=== PATIENT | female | born 1945 | race Caucasian/White ===

== ENCOUNTER → 2016-12-30 | Outpatient (REF) | payer MEDICARE ==
[~2016-12-30] MED LIST: ADV500INH INH; ALBU17IN INH; AMLO10TA PO; AMLO5TAB2 PO; ASPI81TAEC PO; ATOR1TAB18 PO; CINN500C9 PO; CLIN1CAP5 PO; COLA100C PO; COUM1TAB17 PO; COUM2TAB10 PO; DOXY100C PO; ECOT325T3 PO; FIBE625T27 PO; FISH100049 PO; FURO40TA2 PO; INSUH10VL SC; IPRAINH INH; K-TA10TA PO; KEFL500C7 PO; LANTINJ4 SC; LASI20TA PO; LATA5OPD OU; LEVA12INH INH; LEVA250T PO; LOSA100T36 PO; MAGN64TASA PO; MAPA325T2 PO; METAMUCIL PO; METO-207 PO; NOVOINJ3 SC; PERCOCET PO; PRED10TA PO; PRED20TAB PO; PRIL20CA9 PO; SENN-22 PO; SILV50CR TOP; SITA50TAB PO; TYLE325T5 PO
[2016-12-30 16:37] LABS: CREATININE FOR GFR 2.1 MG/DL (0.55-1.02); GLOMERULAR FILTRATION RATE 24.6 (>39)
== END ==
LOC: M LABDRAW1 15:20
PROVIDERS: ATTEND Physician Assistant
DX: M47.896 Other spondylosis, lumbar region (principal)

== ENCOUNTER → 2017-05-11 | Outpatient (CLI) | payer MEDICARE ==
[~2017-05-11] MED LIST changes: -COLA100C PO; +COLA100C3 PO
--- NOTE | 2017-05-11 12:35 | REPMRS ---
Patient History The patient states she had a clinical breast exam in 03/2017. Patient has history of uterine cancer at age 28 and is nulliparous. Family history of colorectal cancer in sister at age 70. Benign lumpectomy of the left breast, 1973. Digital Woman Screen Mammo: May 11, 2017 - Exam #: [id number] Bilateral CC and MLO view(s) were taken. Technologist: Irais Little, Technologist Prior study comparison: April 15, 2015, digital woman screen mammo performed at [facility]. March 26, 2014, digital woman screen mammo performed at [facility]. FINDINGS: There are scattered fibroglandular densities. There has been no change in the appearance of the mammogram from the prior studies. There is a mild amount of residual fibroglandular tissue which is fairly symmetric. There is no interval development of dominant mass, architectural distortion, or clustered microcalcification suggestive of malignancy. ASSESSMENT: BI-RADS/ACR category 1 mammogram. Negative. Recommendation Routine screening mammogram in 1 year (for women over age 40). This mammogram was interpreted with the aid of an FDA-approved computer-aided dectection system. Electronically Signed By: Pawan Lama MD 05/11/17 [id number]
== END ==
LOC: M WHC 10:32
PROVIDERS: ATTEND Obstetrics & Gynecology
DX: Z12.31 Encounter for screening mammogram for malignant neoplasm of breast (principal); Z85.42 Personal history of malignant neoplasm of other parts of uterus; Z80.0 Family history of malignant neoplasm of digestive organs

== ENCOUNTER → 2017-05-16 | Outpatient (CLI) | payer MEDICARE ==
--- NOTE | 2017-05-17 07:40 | REP ---
Left wrist series: Four views. History: Pain. Ulnar sided wrist pain. Comparison left hand radiographs are reviewed from November 24, 2015. Findings: Four views of the left wrist demonstrate soft tissue swelling about the ulnar styloid and ulnar aspect of the wrist. Some vascular calcification is noted. There is progressive erosive change of the ulnar styloid. Some dystrophic calcification is seen adjacent to the ulnar styloid. There is also some erosive arthropathy affecting the first carpometacarpal articulation at the distal edge of the imaging field of view. Impression: Soft-tissue swelling and progressive erosion change at the ulnar styloid. Inflammatory arthropathy possible gout. Vascular calcification. There is some erosive arthropathy at the first MCP joint as well. Signed by Lucius Orozco MD 05/17/2017 08:27 A
== END ==
LOC: M WUC 16:28
PROVIDERS: ATTEND Physician Assistant
DX: M25.532 Pain in left wrist (principal); R60.1 Generalized edema; M15.4 Erosive (osteo)arthritis

== ENCOUNTER → 2017-05-20 | Outpatient (REF) | payer MEDICARE ==
[2017-05-20 13:02] LABS: URIC ACID 8.8 MG/DL (2.6-6.0)
[2017-05-20 13:14] LABS: BASO % 0.8 % (0.0-1.0); EOS # 0.2 K/mm3 (0.0-0.50); EOS % 3.9 % (0.0-3.0); LARGE UNSTAINED CELL # 0.2 K/mm3 (0.0-0.4); LARGE UNSTAINED CELL % 2.8 % (0.0-4.0); LYMPH # 1.5 K/mm3 (1.5-4.5); LYMPH % 26.5 % (24.0-44.0); MEAN CORPUSCULAR HEMOGLOBIN 23.8 pg (27.0-33.0); MEAN CORPUSCULAR VOLUME 85.1 fl (80.0-96.0); MONO # 0.4 K/mm3 (0.0-0.8); MONO % 7.7 % (0.0-5.0); NEUTROPHILS # 3.2 K/mm3 (1.8-7.7); NEUTROPHILS % 58.4 % (36.0-66.0); PLATELET COUNT, AUTOMATED 223 k/mm3 (150-450); RED CELL DISTRIBUTION WIDTH 18.4 % (11.5-14.5); WHITE BLOOD COUNT 5.5 K/mm3 (4.0-10.0)
[2017-05-20 13:15] LABS: ADD MORPHOLOGY? YES
[2017-05-20 13:38] LABS: ERYTHROCYTE SEDIMENTATION RATE 28 mm/hr (0-30)
[2017-05-20 13:42] LABS: ANISOCYTOSIS 2+
[2017-05-22 00:07] LABS: Lyme Disease IgG/IgM Antibodie <0.91 ISR (0.00-0.90); Lyme Disease IgM Ab Quantitati <0.80 index (0.00-0.79)
== END ==
LOC: M LABDRAW1 12:02
PROVIDERS: ATTEND Orthopaedic Surgery
DX: M25.532 Pain in left wrist (principal)

== ENCOUNTER → 2017-06-09 | Outpatient (REF) | payer MEDICARE ==
[~2017-06-09] MED LIST changes: -ATOR1TAB18 PO; +ATOR80TA59 PO; +CLIN150C14 PO; -CLIN1CAP5 PO; -COLA100C3 PO; +COLA100C5 PO; -COUM2TAB10 PO; +COUM2TAB22 PO; -ECOT325T3 PO; +ECOT325T5 PO; +KEFL500C17 PO; -KEFL500C7 PO; +LEVA1TAB PO; -LEVA250T PO; -METO-207 PO; +METO1TAB7 PO
[2017-06-09 17:18] LABS: PERCENT SATURATION 6.1 % (13.2-37.4); URIC ACID 8.7 MG/DL (2.6-6.0)
[2017-06-09 17:45] LABS: FOLATE 19.7 NG/ML (>5.4)
[2017-06-09 20:51] LABS: MEAN CORPUSCULAR HEMOGLOBIN 24.1 pg (27.0-33.0); MEAN CORPUSCULAR HGB CONC 28.1 g/dl (32.0-36.5); MEAN CORPUSCULAR VOLUME 85.6 fl (80.0-96.0); RED CELL DISTRIBUTION WIDTH 18.2 % (11.5-14.5); RETIC HEMOGLOBIN CONTENT CHr 25.3 PG (24-36); RETICULOCYTE ABSOLUTE ADVIA212 95 x10(9)/L (17-77); WHITE BLOOD COUNT 6.2 K/mm3 (4.0-10.0)
[2017-06-09 22:01] LABS: ANISOCYTOSIS 2+; EOSINOPHILS 5 % (0-5); HYPOCHROMASIA 2+; OVALOCYTES 1+; POIKILOCYTOSIS 1+; POLYCHROMASIA 1+
== END ==
LOC: M LAB REF 16:33
PROVIDERS: ATTEND Family Medicine
DX: N18.4 Chronic kidney disease, stage 4 (severe) (principal); D64.9 Anemia, unspecified; R79.89 Other specified abnormal findings of blood chemistry

== ENCOUNTER → 2018-03-30 | Outpatient (REF) | payer MEDICARE | LOC: M LAB REF 13:24 | DX: N39.0 Urinary tract infection, site not specified (principal) | CPT/HCPCS: 87186 ==

== ENCOUNTER → 2018-05-17 | Outpatient (CLI) | payer MEDICARE | LOC: M WHC 10:01 | DX: Z12.31 Encounter for screening mammogram for malignant neoplasm of breast (principal) | CPT/HCPCS: 77067 ==

== ENCOUNTER → 2018-08-25 | Outpatient (CLI) | payer MEDICARE ==
[2018-08-25 13:55] LABS: BASO % 0.4 % (0.0-1.0); EOS # 0.2 10^3/uL (0.0-0.50); EOS % 3.1 % (0.0-3.0); HEMATOCRIT 42.8 % (36.0-47.0); HEMOGLOBIN 13.8 g/dl (12.0-15.5); IMMATURE GRANULOCYTE % 0.4 % (0-3.0); LYMPH # 1.9 10^3/uL (1.5-4.5); LYMPH % 24.4 % (24.0-44.0); MEAN CORPUSCULAR HEMOGLOBIN 31.6 pg (27.0-33.0); MEAN CORPUSCULAR HGB CONC 32.2 g/dl (32.0-36.5); MEAN CORPUSCULAR VOLUME 97.9 fl (80.0-96.0); MONO # 0.7 10^3/uL (0.0-0.8); MONO % 8.9 % (0.0-5.0); NEUTROPHILS # 4.8 10^3/uL (1.8-7.7); NEUTROPHILS % 62.8 % (36.0-66.0); PLATELET COUNT, AUTOMATED 151 10^3/uL (150-450); RED BLOOD COUNT 4.37 10^6/uL (4.00-5.40); RED CELL DISTRIBUTION WIDTH 14.6 % (11.5-14.5); WHITE BLOOD COUNT 7.7 10^3/uL (4.0-10.0)
[2018-08-25 14:11] LABS: URIC ACID 6.4 MG/DL (2.6-6.0)
== END ==
LOC: M WUC 10:48
DX: M79.644 Pain in right finger(s) (principal)
CPT/HCPCS: 84550

== ENCOUNTER → 2018-08-30 | Outpatient (CLI) | payer MEDICARE | LOC: M WUC 15:11 | DX: M79.644 Pain in right finger(s) (principal) | CPT/HCPCS: 73130 ==

== ENCOUNTER → 2018-11-15 | Outpatient (CLI) | payer MEDICARE ==
[~2018-11-15] MED LIST changes: -AMLO5TAB2 PO; +AMLO5TAB4 PO; -LEVA1TAB PO; +LEVA250T13 PO; +LOSA-4 PO; -LOSA100T36 PO
--- NOTE | 2018-11-17 10:22 | DEXA ---
AP SPINE L1 - L4 1.707 4.1 5.9 LT FEMUR TOTAL 1.215 1.6 3.3 LT NECK 1.127 0.6 2.5 RT FEMUR TOTAL 1.164 1.2 2.9 RT NECK 1.171 1.0 2.8 TOTAL BODY TOTAL OTHER COMMENTS: Normal bone densitometry of the spine and hips. The density of the spine has increased 13.6% since the initial exam on 09/08/2005. The spine density has increased 3.4% since the most recent exam on 07/28/2011. The density of the left hip has decreased 3.4% since the initial exam on 09/08/2005. The density of the left hip has decreased 0.4% since the most recent exam on 07/28/2011. The density of the right hip has decreased 8.1% since the initial exam on 09/08/2005. The density of the right hip has decreased 6.8% since the most recent exam on 07/28/2011. FOLLOW-UP: Recommendation for the next bone density exam: 5 years. FRANK
== END ==
LOC: M WHC 14:20
PROVIDERS: ATTEND Family Medicine
DX: Z13.820 Encounter for screening for osteoporosis (principal); Z78.0 Asymptomatic menopausal state

== ENCOUNTER 2019-03-08 05:56 | Day surgery (SDC) | payer MEDICARE ==
[~2019-03-08] VITALS: Ht 167.6 cm; Wt 93.0 kg
[~2019-03-08 05:56] MED LIST changes: +ALLO100T PO; -AMLO5TAB4 PO; +AMLO5TAB6 PO; +BIMA01SOL OU; +CENTCHW3 PO; +D 50CAP PO; +FERR325T3 PO; -LASI20TA PO; +LASI20TA3 PO; +LATA0.0013 OU; -LATA5OPD OU; -LEVA12INH INH; +LEVA3NEB INH; -LOSA-4 PO; +LOSA100T50 PO; +LOSA50TA88 PO; +PRED-351 PO; -PRED10TA PO; -SILV50CR TOP; +THER1CRE16 TOP
[2019-03-08 06:38] LABS: HEMATOCRIT 46.3 % (36.0-47.0); HEMOGLOBIN 14.7 g/dl (12.0-15.5); MEAN CORPUSCULAR HEMOGLOBIN 31.5 pg (27.0-33.0); MEAN CORPUSCULAR HGB CONC 31.7 g/dl (32.0-36.5); MEAN CORPUSCULAR VOLUME 99.1 fl (80.0-96.0); PLATELET COUNT, AUTOMATED 142 10^3/uL (150-450); RED BLOOD COUNT 4.67 10^6/uL (4.00-5.40); WHITE BLOOD COUNT 6.2 10^3/uL (4.0-10.0)
[2019-03-08 06:58] LABS: CALCIUM LEVEL 9.3 MG/DL (8.8-10.2); CREATININE FOR GFR 1.89 MG/DL (0.55-1.30); GLOMERULAR FILTRATION RATE 27.7 (>39); POTASSIUM SERUM 4.1 MEQ/L (3.5-5.1)
[2019-03-08] MEDS ORDERED: CLINDAMYCIN 600 MG in APPROPRIATE DILUENT 1 EA IV SCH (07:00)
[2019-03-08] MEDS ORDERED: CLINDAMYCIN 600 MG in APPROPRIATE DILUENT 1 EA IV ONE (07:00)
[2019-03-08] MEDS ORDERED: PROPOFOL 500 MG/50 ML VIAL As Ordered ONE (07:13)
[2019-03-08] MEDS ORDERED: MIDAZOLAM INJ 2 MG/2 ML VIAL (J2250) As Ordered ONE (07:13)
[2019-03-08] MEDS ORDERED: fentaNYL 100 MCG/2 ML INJECTION (J3010) As Ordered ONE (07:13)
[2019-03-08] MEDS ORDERED: ONDANSETRON 4MG/2ML VIAL (J2405) As Ordered ONE (07:14)
[2019-03-08] MEDS ORDERED: dexameTHASONE 4 MG/ML 1ML VIAL (J1100) As Ordered ONE (07:14)
[2019-03-08] MEDS ORDERED: LIDOCAINE 2% INJ 100 MG/5 ML SDV (FOR ANES.) As Ordered ONE (07:14)
[2019-03-08] MEDS ORDERED: LIDOCAINE 1% SDV INJ 30 ML VIAL As Ordered ONE (07:19)
[2019-03-08] MEDS ORDERED: BUPIVACAINE/EPIN 0.25% 30 ML VIAL As Ordered ONE (07:25)
--- NOTE | 2019-03-08 07:45 | ECGEPIP ---
Stationary ECG Study [facility] Test Date: 2019-03-08 Pat Name: NICHOLAS OVIEDO Department: Room: - Gender: F Roll Builder: [facility] : 1945 Requested By: JARRETT Lawler Order Number: [id number] Reading MD: Sarkis Mcpherson Measurements Intervals [place] Rate: 61 P: 78 VT: 196 QRS: 101 QRSD: 145 T: -3 QT: 472 QTc: 476 Interpretive Statements SINUS RHYTHM MARKED RIGHT AXIS DEVIATION RIGHT BUNDLE BRANCH BLOCK Slower rate and resolution of primary lateral ST/T-wave abnormalities from 05/10/16. Electronically Signed On 03-08-2019 7:44:35 EDT by Sarkis Mcpherson
[2019-03-08 09:15] VITALS: BP 157/69
--- NOTE | 2019-03-08 09:30 | RO ---
DATE OF PROCEDURE: 03/08/2019 PREOPERATIVE DIAGNOSIS: Right carpal tunnel syndrome. POSTOPERATIVE DIAGNOSIS: Right carpal tunnel syndrome. PROCEDURE: Right open carpal tunnel release. PROCEDURE PERFORMED: Right open carpal tunnel release. SURGEON: Dr. Audi Nicole VENDER: Dari Pham OPERATIVE PREAMBLE: This 73-year-old female who had signs and symptoms consistent with chronic carpal tunnel syndrome. She wished good ahead with surgery after trying nonoperative means. We talked about pros, cons, risks, benefits including but not limited to infection, neurovascular injury, stiffness, pain, bleeding making it no better or even worse as well as anesthesia risks nd . She wished to go ahead we signed the consent. I saw her preoperative holding and confirmed the site and then she wished to go ahead. OPERATIVE REPORT: Patient brought to operating theater. She was placed on the operating room table with the hand table to the right side. 18 inch tourniquet was applied to the right upper extremity. Preoperative time-out was performed. Checked the patient and the site was marked appropriately. IV sedation was given by the telehealth coordinator. We thoroughly prepped and draped the surgical site in the usual sterile fashion. We allowed this prep solution to thoroughly dry for 3 minutes. Tourniquet was inflated to 250 mmHg for the next 18 minutes before being taken down at the end of the case. Four mL of 0.25% Marcaine with 1/100,000 epinephrine was infiltrated using 25-gauge needle and around the incision site. I made a longitudinal approximately 1 inch incision centered overlying the transverse carpal tunnel ligament in line with the fourth digit. Carried this dissection down through skin and 70 tissue which had meticulous hemostasis. Next I incised the transverse carpal ligament along its length. I made sure it was fully released proximally and distally with a with 15 blade small tenotomy scissors and [place] elevator. Once the transverse carpal ligament was released I inspected the flexor tendons which appeared relatively normal. There is perhaps small area compression in the mid aspect of the median nerve. Next, I thoroughly irrigated the wound using normal saline followed by closure of the skin with interrupted horizontal mattress 5-0 Ethilon sutures. We cleaned the wound using wet and dry dressing followed by the patient nonstick Xeroform dressing for 4 x8 gauze and Celestine type bandage. All sterile. Tourniquet was taken down. The patient was transferred off the operating room table and taken postanesthetic care unit in stable condition. All sponge, needle, instrument counts were correct. Estimated blood loss of 1 mL. There is no complications associated with the procedure. PLAN: The patient will be discharged home. They should continue to elevate the arm and hand as well as followup in the clinic in 2 weeks time to check the incision and discontinue the sutures.
== END 2019-03-08 09:29 | disposition home or self-care (01) ==
LOC: M SDC 05:56
PROVIDERS: ATTEND Orthopaedic Surgery Sports Medicine
DX: G56.01 Carpal tunnel syndrome, right upper limb (principal); I25.10 Atherosclerotic heart disease of native coronary artery without angina pectoris; I10 Essential (primary) hypertension; E78.5 Hyperlipidemia, unspecified; E11.40 Type 2 diabetes mellitus with diabetic neuropathy, unspecified; M10.9 Gout, unspecified; Z86.711 Personal history of pulmonary embolism; Z79.4 Long term (current) use of insulin; J44.9 Chronic obstructive pulmonary disease, unspecified; Z79.82 Long term (current) use of aspirin; Z87.891 Personal history of nicotine dependence; Z79.899 Other long term (current) drug therapy; Z85.42 Personal history of malignant neoplasm of other parts of uterus
CPT/HCPCS: 36415; 64721; 80048; 85027; 93005; J1100; J2250; J2405; J3010

== ENCOUNTER 2019-04-02 00:07 | Emergency (ER) | payer MEDICARE, OTHER ==
[~2019-04-02] VITALS: Ht 167.6 cm; Wt 93.2 kg
[2019-04-02] MEDS ORDERED: MORPHINE 10 MG/ML 1ML VIAL (J2270) IM ONE (01:30)
[2019-04-02] MEDS ORDERED: traMADol 50 MG TAB (BULK 4 TAB ED) PO ONE (01:45)
[2019-04-02 01:51] VITALS: BP 127/58
--- NOTE | 2019-04-02 12:03 | REP ---
CHEST, TWO VIEWS: Two views of the chest are performed and compared to a prior study of 05/22/2016. Chronic interstitial fibrotic changes are seen in the lung bases, appearing stable. No acute infiltrate or pneumothorax is seen. I see no pleural effusion. There is chronic elevation of the right hemidiaphragm. Prominent right pulmonary artery is noted. The heart is normal in size. There is calcification of the thoracic aorta. The mediastinal silhouette is unchanged. There are degenerative changes of the spine. IMPRESSION: Stable chronic findings as above. No evidence of acute findings. Electronically Signed by Pawan Lama MD 04/02/2019 12:30 P
== END 2019-04-02 02:17 | disposition home or self-care (01) ==
LOC: M ED 00:07 → EDBD 00:07 → M ED 02:17
DX: S20.211A Contusion of right front wall of thorax, initial encounter (principal); V49.49XA Driver injured in collision with other motor vehicles in traffic accident, initial encounter; Y92.410 Unspecified street and highway as the place of occurrence of the external cause; E11.9 Type 2 diabetes mellitus without complications; I10 Essential (primary) hypertension; J44.9 Chronic obstructive pulmonary disease, unspecified; I25.10 Atherosclerotic heart disease of native coronary artery without angina pectoris; N28.9 Disorder of kidney and ureter, unspecified; Z79.899 Other long term (current) drug therapy; Z79.82 Long term (current) use of aspirin; Z79.4 Long term (current) use of insulin; Z88.0 Allergy status to penicillin; Z88.1 Allergy status to other antibiotic agents
CPT/HCPCS: 71046; 96372; 99284; J2270

== ENCOUNTER 2019-04-03 12:46 | Emergency (ER) | payer OTHER ==
[~2019-04-03] VITALS: Ht 167.6 cm; Wt 93.2 kg
[2019-04-03 12:46] VITALS: BP 93/55
--- NOTE | 2019-04-03 14:35 | REP ---
REASON: Status post trauma. COMPARISON: None. There is a fracture involving the radial styloid with an intra-articular component. This is nondisplaced. Electronically Signed by Jase Walker DO 04/03/2019 04:38 P
== END 2019-04-03 14:11 | disposition home or self-care (01) ==
LOC: M ED 12:46
DX: S52.514A Nondisplaced fracture of right radial styloid process, initial encounter for closed fracture (principal); V49.60XA Unspecified car occupant injured in collision with unspecified motor vehicles in traffic accident, initial encounter; Y92.410 Unspecified street and highway as the place of occurrence of the external cause; I13.0 Hypertensive heart and chronic kidney disease with heart failure and stage 1 through stage 4 chronic kidney disease, or unspecified chronic kidney disease; I50.9 Heart failure, unspecified; E78.00 Pure hypercholesterolemia, unspecified; J44.9 Chronic obstructive pulmonary disease, unspecified; I95.9 Hypotension, unspecified; N18.9 Chronic kidney disease, unspecified; E11.22 Type 2 diabetes mellitus with diabetic chronic kidney disease; M54.9 Dorsalgia, unspecified; Z87.442 Personal history of urinary calculi; Z79.899 Other long term (current) drug therapy; Z79.82 Long term (current) use of aspirin; Z79.4 Long term (current) use of insulin; Z88.0 Allergy status to penicillin; Z88.1 Allergy status to other antibiotic agents

== ENCOUNTER → 2019-07-17 | Outpatient (CLI) | payer MEDICARE ==
--- NOTE | 2019-07-17 12:55 | REPMRS ---
Patient History The patient states she had a clinical breast exam in 03/2019. Patient has history of bladder cancer at age 34, has history of endometrial cancer at age 28, and is nulliparous. Family history of colorectal cancer at age 70 in sister. Benign lumpectomy of the left breast, 1974. Digital Woman Screen Mammo: July 17, 2019 - Exam #: [id number] Bilateral CC and MLO view(s) were taken. Technologist: Lauren Allen Technologist Prior study comparison: May 17, 2018, bilateral digital woman screen mammo performed at [facility]. May 11, 2017, digital woman screen mammo performed at [facility]. April 15, 2015, digital woman screen mammo performed at [facility]. FINDINGS: There are scattered fibroglandular densities. There is a grouping of benign stable dermal calcifications inferiorly and medially in the right breast unchanged from multiple prior studies. There has been no change in the appearance of the mammogram from the prior studies. There is a mild amount of scattered fibroglandular density which is fairly symmetric. There is no interval development of dominant mass, architectural distortion, or grouped microcalcification suggestive of malignancy. 3-D tomosynthesis shows no additional findings. Assessment: BI-RADS/ACR category 2 mammogram. Benign Findings. Recommendation Routine screening mammogram of both breasts in 1 year (for women over age 40). This patient's Lifetime Breast Cancer Risk is estimated at 4.6 %. This mammogram was interpreted with the aid of an FDA-approved computer-aided dectection system. Electronically Signed By: Gregory Orozco MD 07/17/19 [id number]
== END ==
LOC: M WHC 12:03
PROVIDERS: ATTEND Obstetrics & Gynecology
DX: Z12.31 Encounter for screening mammogram for malignant neoplasm of breast (principal); Z85.42 Personal history of malignant neoplasm of other parts of uterus; Z85.51 Personal history of malignant neoplasm of bladder; Z80.0 Family history of malignant neoplasm of digestive organs

== ENCOUNTER → 2019-09-28 | Day surgery (SDC) | payer MEDICARE ==
[~2019-09-28] VITALS: Ht 167.6 cm; Wt 91.6 kg
[~2019-09-28] MED LIST changes: +LIDOCAINE 2% INJ 100 MG/5 ML SDV (FOR ANES.) As Ordered ONE; +NS 1,000 ML IV ONE; +PROPOFOL 200 MG/20 ML VIAL As Ordered ONE
--- NOTE | 2019-09-28 13:50 | ROOR ---
Patient Name: Italia Alejandra Procedure Date: 09/28/2019 1:13 PM Date of : 1945 Age: 74 Room: [facility] Gender: Female Note Status: Finalized Procedure: Colonoscopy Indications: Screening for colorectal malignant neoplasm Providers: Alan Lopes Jr, MD Referring MD: Rajesh Kinsey MD Requesting Provider: Medicines: Propofol per Anesthesia Complications: No immediate complications. Procedure: Pre-Anesthesia Assessment: - Prior to the procedure, a History and Physical was performed, and patient medications and allergies were reviewed. The patient is competent. The risks and benefits of the procedure and the sedation options and risks were discussed with the patient. All questions were answered and informed consent was obtained. Patient identification and proposed procedure were verified by the physician and the nurse in the pre-procedure area and in the procedure room. Mental Status Examination: alert and oriented. Airway Examination: normal oropharyngeal airway and neck mobility. Respiratory Examination: clear to auscultation. CV Examination: normal. ASA Grade Assessment: III - A patient with severe systemic disease. After reviewing the risks and benefits, the patient was deemed in satisfactory condition to undergo the procedure. The anesthesia plan was to use moderate sedation / analgesia (conscious sedation). Immediately prior to administration of medications, the patient was re-assessed for adequacy to receive sedatives. The heart rate, respiratory rate, oxygen saturations, blood pressure, adequacy of pulmonary ventilation, and response to care were monitored throughout the procedure. The physical status of the patient was re-assessed after the procedure. The Colonoscope was introduced through the anus and advanced to the cecum, identified by appendiceal orifice and ileocecal valve. The colonoscopy was performed without difficulty. The patient tolerated the procedure well. The quality of the bowel preparation was poor. Findings: The rectum, recto-sigmoid colon, descending colon, ascending colon, cecum, appendiceal orifice and ileocecal valve appeared normal. Multiple small and large-mouthed diverticula were found in the sigmoid colon. A small polyp was found in the transverse colon. The polyp was removed with a cold snare. Resection was complete, but the polyp tissue was not retrieved. Non-bleeding external and internal hemorrhoids were found during endoscopy. The hemorrhoids were Grade II (internal hemorrhoids that prolapse but reduce spontaneously) and Grade III (internal hemorrhoids that prolapse but require manual reduction). Impression: - Preparation of the colon was poor. - The rectum, recto-sigmoid colon, descending colon, ascending colon, cecum, appendiceal orifice and ileocecal valve are normal. - Diverticulosis in the sigmoid colon. - One small polyp in the transverse colon, removed with a cold snare. Complete resection. Polyp tissue not retrieved. - Non-bleeding external and internal hemorrhoids. Recommendation: - Discharge patient to home (ambulatory). - Repeat colonoscopy in 5 years for surveillance. Alan Lopes MD Alan Lopes Jr, MD 09/28/2019 1:50:27 PM Electronically signed by Alan Lopes Jr, MD Number of Addenda: 0 Note Initiated On: 09/28/2019 1:13 PM Estimated Blood Loss: Estimated blood loss: none.
[2019-09-28 14:20] VITALS: BP 166/72
== END | disposition home or self-care (01) ==
LOC: M OPP 13:20
PROVIDERS: ATTEND Surgery
DX: Z12.11 Encounter for screening for malignant neoplasm of colon (principal); Z80.0 Family history of malignant neoplasm of digestive organs; K64.2 Third degree hemorrhoids; K64.1 Second degree hemorrhoids; D12.3 Benign neoplasm of transverse colon; K57.30 Diverticulosis of large intestine without perforation or abscess without bleeding; J44.9 Chronic obstructive pulmonary disease, unspecified; E10.9 Type 1 diabetes mellitus without complications; Z79.2 Long term (current) use of antibiotics; Z79.4 Long term (current) use of insulin; Z79.899 Other long term (current) drug therapy; Z88.1 Allergy status to other antibiotic agents; Z86.718 Personal history of other venous thrombosis and embolism; Z86.711 Personal history of pulmonary embolism; Z85.41 Personal history of malignant neoplasm of cervix uteri; Z85.51 Personal history of malignant neoplasm of bladder; Z87.891 Personal history of nicotine dependence

== ENCOUNTER → 2020-06-26 | Outpatient (REF) | payer MEDICARE ==
[~2020-06-26] MED LIST changes: +AMLO1TAB24 PO; -AMLO5TAB6 PO; -LIDOCAINE 2% INJ 100 MG/5 ML SDV (FOR ANES.) As Ordered ONE; +LOSA25TA14; -MAPA325T2 PO; +MAPA325T8 PO; +NORC1TAB7 PO; -NS 1,000 ML IV ONE; +OMEP-221; -PROPOFOL 200 MG/20 ML VIAL As Ordered ONE
[2020-07-22 08:22] LABS: APPEARANCE, URINE CLEAR (CLEAR); BACTERIA, URINE AUTO NEGATIVE (NEGATIVE); BILIRUBIN, URINE AUTO NEGATIVE (NEGATIVE); BLOOD, URINE BLOOD NEGATIVE (NEGATIVE); COLOR, URINE STRAW (YELLOW); GLUCOSE, URINE (UA) AUTO NEGATIVE (NEGATIVE); KETONE, URINE AUTO NEGATIVE (NEGATIVE); LEUKOCYTE ESTERASE, URINE AUTO NEGATIVE (NEGATIVE); NITRITE, URINE AUTO NEGATIVE (NEGATIVE); PROTEIN, URINE AUTO NEGATIVE (NEGATIVE); RBC, URINE AUTO 0 /HPF (0-3); SPECIFIC GRAVITY URINE AUTO 1.008 (1.002-1.035); SQUAMOUS EPITHELIAL CELL UR AU 0 /HPF (0-6); UROBILINOGEN, URINE AUTO 0.2 mg/dL (0.0-2.0); WBC, URINE AUTO 0 /HPF (0-3)
== END ==
LOC: M LAB REF 08:52
PROVIDERS: ATTEND Family Medicine
DX: Z01.818 Encounter for other preprocedural examination (principal)

== ENCOUNTER → 2020-07-25 | Outpatient (CLI) | payer MEDICARE ==
--- NOTE | 2020-07-25 16:27 | REPMRS ---
Patient History The patient states she has not had a clinical breast exam in over a year. Family history of colorectal cancer at age 70 in sister. Benign lumpectomy of the left breast, 1974. Digital Woman Screen Mammo: July 25, 2020 - Exam #: [id number] Bilateral CC and MLO view(s) were taken. Technologist: Kika Perez, Technologist Prior study comparison: July 17, 2019, bilateral digital woman screen mammo performed at [facility]. May 17, 2018, bilateral digital woman screen mammo performed at [facility]. May 11, 2017, digital woman screen mammo performed at [facility]. FINDINGS: There are scattered fibroglandular densities. The Volpara volumetric breast density category is:B. There has been no change in the appearance of the mammogram from the prior studies. There is a mild amount of scattered fibroglandular density which is fairly symmetric. There is no interval development of dominant mass, architectural distortion, or grouped microcalcification suggestive of malignancy. 3-D tomosynthesis shows no additional findings. Assessment: BI-RADS/ACR category 1 mammogram. Negative Mammogram. Recommendation Routine screening mammogram of both breasts in 1 year (for women over age 40). This patient's Lifetime Breast Cancer Risk is estimated at 4.2 %. This mammogram was interpreted with the aid of an FDA-approved computer-aided dectection system. Electronically Signed By: Gregory Orozco MD 07/25/20 [id number]
== END ==
LOC: M WHC 10:53
PROVIDERS: ATTEND Family Medicine
DX: Z12.31 Encounter for screening mammogram for malignant neoplasm of breast (principal); C67.9 Malignant neoplasm of bladder, unspecified; Z86.018 Personal history of other benign neoplasm; Z80.0 Family history of malignant neoplasm of digestive organs

== ENCOUNTER 2020-08-06 00:10 | Emergency (ER) | payer MEDICARE ==
[~2020-08-06] VITALS: Ht 167.6 cm; Wt 93.5 kg
[~2020-08-06 00:10] MED LIST changes: -LOSA25TA14; -NORC1TAB7 PO; -OMEP-221
[2020-08-06] MEDS ORDERED: LOSA25TA14 (00:23)
[2020-08-06] MEDS ORDERED: OMEP-221 (00:23)
[2020-08-06] MEDS ORDERED: ACETAMINOPHEN 500 MG TAB PO ONE (00:45)
[2020-08-06 01:32] VITALS: BP 176/72
--- NOTE | 2020-08-06 01:37 | REPVR ---
PROCEDURE INFORMATION: Exam: XR Right Shoulder Exam date and time: 08/06/2020 1:21 AM Age: 74 years old Clinical indication: Pain; Shoulder; Right; Patient HX: Fall; Additional info: Injury TECHNIQUE: Imaging protocol: XR Right shoulder. Views: 2 or more views. COMPARISON: No relevant prior studies available. FINDINGS: Bones/joints: Acute humeral head and neck fracture. Soft tissues: Normal. IMPRESSION: Acute humeral head and neck fracture. Electronically signed by: Roland Wells On 08/06/2020 01:37:17 AM
--- NOTE | 2020-08-06 01:38 | REPVR ---
PROCEDURE INFORMATION: Exam: XR Right Elbow Exam date and time: 08/06/2020 1:21 AM Age: 74 years old Clinical indication: Pain; Upper arm and elbow; Right; Patient HX: Fall; Additional info: Injury TECHNIQUE: Imaging protocol: XR Right elbow. Views: 3 or more views. COMPARISON: No relevant prior studies available. FINDINGS: Bones/joints: Degenerative changes. Soft tissues: Normal. IMPRESSION: No acute fractures or dislocations. Electronically signed by: Roland Wells On 08/06/2020 01:38:17 AM
[2020-08-06] MEDS ORDERED: NORC1TAB7 PO (01:47)
[2020-08-06] MEDS ORDERED: NORCO 5/325MG TABLET (BULK FOR ED) PO ONE (02:00)
== END 2020-08-06 02:12 | disposition home or self-care (01) ==
LOC: M ED 00:10
DX: S42.211A Unspecified displaced fracture of surgical neck of right humerus, initial encounter for closed fracture (principal); W17.89XA Other fall from one level to another, initial encounter; Y92.018 Other place in single-family (private) house as the place of occurrence of the external cause; Z79.899 Other long term (current) drug therapy; Z79.82 Long term (current) use of aspirin; Z79.4 Long term (current) use of insulin; Z88.0 Allergy status to penicillin; Z88.1 Allergy status to other antibiotic agents; F17.210 Nicotine dependence, cigarettes, uncomplicated

== ENCOUNTER → 2021-04-02 | Outpatient (REF) | payer MEDICARE ==
[~2021-04-02] MED LIST changes: +ASPI-569 PO; -ASPI81TAEC PO; -CLIN150C14 PO; +CLIN150C15 PO; +LOSA25TA14; +NORC1TAB7 PO; +OMEP-221
== END ==
LOC: M LAB REF 16:25
PROVIDERS: ATTEND Family Medicine
DX: M10.9 Gout, unspecified (principal)

== ENCOUNTER → 2021-04-03 | Outpatient (REF) | payer MEDICARE | LOC: M LAB REF 16:29 | PROVIDERS: ATTEND Family Medicine | DX: R19.7 Diarrhea, unspecified (principal) ==

== ENCOUNTER → 2021-08-18 | Outpatient (CLI) | payer MEDICARE ==
[~2021-08-18] MED LIST changes: -CLIN150C15 PO; +CLIN150C17 PO; -DOXY100C PO; +DOXY100C3 PO
--- NOTE | 2021-08-18 15:50 | REP ---
INDICATION: STENOSIS, PAD COMPARISON: None. TECHNIQUE: Real-time ultrasound evaluation and duplex Doppler interrogation of the extracranial carotid vasculature is performed. FINDINGS: There is moderate calcific plaquing and narrowing in both carotid bulbs extending into the internal and external carotid arteries. Luminal narrowing is less than 50%. There is no evidence of hemodynamically significant stenosis of either internal carotid artery. Normal flow velocities are seen. The vertebral arteries demonstrate normal direction of flow. RIGHT LEFT Peak systolic velocity ICA 122.4 cm/s 115.7 cm/s End diastolic velocity ICA 18.0 cm/s 12.2 cm/s Peak systolic velocity CCA 127.9 cm/s 88.5cm/s Peak systolic velocity ECA 96.9 cm/s 76.6 cm/s ICA/CCA ratio 0.92 1.31 IMPRESSION: Bilateral luminal narrowing of the internal carotid arteries less than 50%. No evidence of hemodynamically significant stenosis. <Electronically signed by Pawan Lama > 08/18/21 [id number]
--- NOTE | 2021-08-18 16:16 | REP ---
INDICATION: STENOSIS, PAD COMPARISON: None. TECHNIQUE: Real time lama scale and Duplex Doppler evaluation of the bilateral lower extremity arterial vasculature using linear high frequency transducer. FINDINGS: Lama scale and duplex doppler images demonstrate an occluded femoral to femoral bypass graft. Multiple collateral vessels are seen in the common iliac regions. Flow is seen in the bilateral external iliac arteries. There is very slow flow throughout the right lower extremity arterial structures with diffuse monophasic waveforms. No focal stenosis is visualized. There is poor visualization of the common femoral arteries at the bypass graft anastomosis. Moderate diffuse calcific plaque is seen. Diffuse biphasic waveforms are seen throughout the left lower extremity. No focal stenosis is seen. Moderate diffuse calcific plaque is seen. Peak systolic velocities (cm/sec) External iliac artery: Right 65; left 118 Common femoral artery: Right 98; Left 99 Profunda femoris: Right 30; Left 89 SFA (proximal): Right 36; Left 59 SFA (mid): Right 61; Left 72 SFA (distal): Right 28; Left 57 Popliteal artery: Right 23; Left 26 ANGELO (prox.): Right 22; Left 56 Tibioperoneal trunk: Right 22; Left 25 HOME MANAGEMENT SUPERVISOR (prox.): Right 20; Left 49 HOME MANAGEMENT SUPERVISOR (distal): Right 11; Left 41 ANGELO (distal): Right 26; Left 61 IMPRESSION: Moderate diffuse calcific plaque bilateral lower extremity arterial structures. 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 Collateral vessels are seen in the common iliac regions. There is flow in the bilateral external iliac arteries extending distally bilaterally with no duplex Doppler sonographic evidence of focal stenosis bilaterally. <Electronically signed by Pawan Lama > 08/18/21 [id number]
== END ==
LOC: M RAD 12:58
PROVIDERS: ATTEND Physician Assistant Medical
DX: I65.23 Occlusion and stenosis of bilateral carotid arteries (principal); I73.9 Peripheral vascular disease, unspecified

== ENCOUNTER → 2021-09-05 | Outpatient (CLI) | payer MEDICARE ==
--- NOTE | 2021-09-05 14:09 | REPMRS ---
Patient History The patient states she has not had a clinical breast exam in over a year. Family history of colorectal cancer at age 70 in sister. Benign lumpectomy of the left breast, 1974. No breast complaints today Patient signed the MRS sheet 1st covid vaccine 01/05/21-left arm-Moderna 2nd covid vaccine 02/02/21-left arm Patient states she has had a 15lb weight lose since her last mammo [facility] on PACS Patient Identification Verified Digital Woman Screen Mammo: September 05, 2021 - Exam #: [id number] Bilateral CC and MLO view(s) were taken. Technologist: Kika Perez, Technologist Prior study comparison: July 25, 2020, bilateral digital woman screen mammo performed at [facility]. July 17, 2019, bilateral digital woman screen mammo performed at [facility]. May 17, 2018, bilateral digital woman screen mammo performed at [facility]. FINDINGS: There are scattered fibroglandular densities. The Volpara volumetric breast density category is:B. There is a well-circumscribed 5 mm kaci density in the medial aspect of the left breast. This merits further evaluation. There is a similar sized very superficial kaci density in the lateral aspect superiorly on the right which also merits further evaluation there are dermal calcifications inferiorly and medially on the left. These are benign.. There has been no other change in the appearance of the mammogram from the prior studies. There is a mild amount of scattered fibroglandular density which is fairly symmetric. There is no other interval development of dominant mass, architectural distortion, or grouped microcalcification suggestive of malignancy. 3-D tomosynthesis shows no additional findings. Assessment: BI-RADS/ACR category 0 mammogram, Incomplete: Need additional imaging evaluation and/or prior mammograms for comparison. Recommendation Ultrasound and special view mammogram of both breasts. This patient's [facility] Lifetime Breast Cancer Risk is estimated at 3.5 %. This mammogram was interpreted with the aid of an FDA-approved computer-aided dectection system. Electronically Signed By: Gregory Orozco MD 09/05/21 [id number]
== END ==
LOC: M WHC 11:21
PROVIDERS: ATTEND Family Medicine
DX: R92.2 Inconclusive mammogram (principal); Z80.8 Family history of malignant neoplasm of other organs or systems; Z98.890 Other specified postprocedural states; R63.4 Abnormal weight loss

== ENCOUNTER → 2021-09-08 | Outpatient (CLI) | payer MEDICARE ==
[2021-09-08 14:23] LABS: CALCIUM LEVEL 8.9 MG/DL (8.8-10.2); CREATININE FOR GFR 1.82 MG/DL (0.55-1.30); GLOMERULAR FILTRATION RATE 28.7 (>39); POTASSIUM SERUM 4.4 MEQ/L (3.5-5.1)
== END ==
LOC: M WUC 11:11
PROVIDERS: ATTEND Physician Assistant Medical
DX: Z01.812 Encounter for preprocedural laboratory examination (principal); Z95.828 Presence of other vascular implants and grafts; I73.9 Peripheral vascular disease, unspecified

== ENCOUNTER → 2021-10-01 | Outpatient (CLI) | payer MEDICARE ==
--- NOTE | 2021-10-01 12:52 | REP ---
INDICATION: B/L ADD VIEWS. COMPARISON: 09/05/2021 as well as multiple other prior exams. TECHNIQUE: Spot-compression tomographic sequences are obtained bilaterally, as well as focused bilateral breast ultrasound. FINDINGS: A smoothly marginated 5 mm nodule is confirmed in the upper outer quadrant of the right breast. This is fairly superficial, located near the skin, approximately 7-8 cm from the nipple. A smoothly marginated 5 mm nodule is confirmed in the medial left breast, approximately 7 cm from the nipple. Focused right breast ultrasound is performed. There is a cystic structure with focal echoes along the inner wall posteriorly. There is some degree of distal acoustic shadowing. This measures 3 x 3 x 4 mm. According to the technologist it is at 12 o'clock, 4 cm from the nipple. Average KP a value 16.3 with elastography. I am uncertain if this corresponds to the nodule on the mammogram. Focused left breast ultrasound performed medially. At 10 o'clock a 4 mm hypoechoic nodule is seen not representing a simple cyst. This is approximately 7 cm from the nipple. Average KP a value 30.8. IMPRESSION: BIRADS/ACR category 4, suspicious. 5 mm nodule confirmed in the upper outer quadrant of the right breast and in the inner left breast. By ultrasound the right breast nodule appears to represent a complex cystic structure, and the left breast nodule may be a complex cyst or solid nodule. Recommend bilateral ultrasound-guided biopsy with postprocedure mammogram, to ensure that the nodules identified sonographically correspond to the nodules identified mammographically. This mammogram was interpreted with the aid of an FDA-approved computer-aided detection system. The patient letter being requested is M4. RECOMMENDATION: Recommend bilateral ultrasound-guided biopsy. <Electronically signed by Pawan Lama > 10/01/21 1245
== END ==
LOC: M WHC 10:54
PROVIDERS: ATTEND Family Medicine
DX: N63.11 Unspecified lump in the right breast, upper outer quadrant (principal); N63.21 Unspecified lump in the left breast, upper outer quadrant; Z12.31 Encounter for screening mammogram for malignant neoplasm of breast
CPT/HCPCS: 76642; 77066; G0279

== ENCOUNTER → 2021-10-06 | Outpatient (REF) | payer MEDICARE | LOC: M LAB REF 17:03 | PROVIDERS: ATTEND Internal Medicine Nephrology | DX: E83.42 Hypomagnesemia (principal) ==

== ENCOUNTER → 2021-10-28 | Outpatient (CLI) | payer MEDICARE ==
[~2021-10-28] MED LIST changes: +LOSA100T45 PO; -LOSA100T50 PO; +LOSA25TA13; -LOSA25TA14; +LOSA50TA28 PO; -LOSA50TA88 PO; -OMEP-221; +OMEP40CA5
[2021-10-28 11:30] VITALS: BP 124/74
== END ==
LOC: M WHCPRO 09:30
PROVIDERS: ATTEND Family Medicine
DX: D24.1 Benign neoplasm of right breast (principal); D24.2 Benign neoplasm of left breast; N63.12 Unspecified lump in the right breast, upper inner quadrant; N63.22 Unspecified lump in the left breast, upper inner quadrant
CPT/HCPCS: 19083; 19084; 77066; 88305; G0279

== ENCOUNTER → 2022-01-02 | Outpatient (CLI) | payer MEDICARE | LOC: M SLEEP 20:00 | PROVIDERS: ATTEND Internal Medicine Pulmonary Disease | DX: G47.33 Obstructive sleep apnea (adult) (pediatric) (principal) ==

== ENCOUNTER → 2022-01-05 | Outpatient (CLI) | payer MEDICARE | LOC: M RAD 15:01 | PROVIDERS: ATTEND Nurse Practitioner Family | DX: R06.00 Dyspnea, unspecified (principal) ==

== ENCOUNTER → 2022-01-05 | Outpatient (CLI) | payer MEDICARE | LOC: M RAD 15:02 | PROVIDERS: ATTEND Internal Medicine Pulmonary Disease | DX: R91.8 Other nonspecific abnormal finding of lung field (principal); R06.00 Dyspnea, unspecified ==

== ENCOUNTER → 2022-01-06 | Outpatient (CLI) | payer MEDICARE | LOC: M RAD 09:19 | PROVIDERS: ATTEND Internal Medicine Cardiovascular Disease | DX: I27.20 Pulmonary hypertension, unspecified (principal) | CPT/HCPCS: 78582; A9540; A9567 ==

== ENCOUNTER → 2022-01-30 | Outpatient (CLI) | payer MEDICARE ==
[2022-01-30 14:32] LABS: C REACTIVE PROTEIN QUANTITATIV 0.31 MG/DL (0.00-0.30); RHEUMATOID FACTOR QUANT 10.8 IU/ML (<15.0)
[2022-01-30 15:12] LABS: CA19-9 TUMOR MARKER,CARBOHYDRA 7.6 U/ML (<35.0)
== END ==
LOC: M LAB 12:44
PROVIDERS: ATTEND Internal Medicine Pulmonary Disease
DX: J84.9 Interstitial pulmonary disease, unspecified (principal)

== ENCOUNTER → 2022-03-26 | Outpatient (CLI) | payer MEDICARE | LOC: M SLEEP 20:00 | PROVIDERS: ATTEND Internal Medicine Pulmonary Disease | DX: G47.33 Obstructive sleep apnea (adult) (pediatric) (principal) ==

== ENCOUNTER → 2022-05-12 | Outpatient (CLI) | payer MEDICARE | LOC: M RAD 10:36 | PROVIDERS: ATTEND Internal Medicine Pulmonary Disease | DX: J84.9 Interstitial pulmonary disease, unspecified (principal) ==

== ENCOUNTER → 2022-06-19 | Outpatient (REF) | payer MEDICARE | LOC: M LAB REF 15:43 | PROVIDERS: ATTEND Student in an Organized Health Care Education/Training Program | DX: M54.50 Low back pain, unspecified (principal) ==

== ENCOUNTER → 2022-06-25 | Outpatient (CLI) | payer MEDICARE | LOC: M WUC 11:47 | PROVIDERS: ATTEND Physician Assistant | DX: M51.35 Other intervertebral disc degeneration, thoracolumbar region (principal); N39.0 Urinary tract infection, site not specified ==

== ENCOUNTER → 2022-07-20 | Outpatient (CLI) | payer MEDICARE | LOC: M WHC 08:33 | PROVIDERS: ATTEND Orthopaedic Surgery | DX: M85.9 Disorder of bone density and structure, unspecified (principal); Z87.828 Personal history of other (healed) physical injury and trauma ==

== ENCOUNTER → 2022-07-20 | Outpatient (CLI) | payer MEDICARE | LOC: M RAD 11:10 | PROVIDERS: ATTEND Internal Medicine Pulmonary Disease | DX: M85.89 Other specified disorders of bone density and structure, multiple sites (principal); R91.8 Other nonspecific abnormal finding of lung field; J84.9 Interstitial pulmonary disease, unspecified; N18.9 Chronic kidney disease, unspecified; I50.9 Heart failure, unspecified; Z88.0 Allergy status to penicillin; Z79.4 Long term (current) use of insulin; Z79.899 Other long term (current) drug therapy ==

== ENCOUNTER 2022-08-25 20:29 | Inpatient (IN) | payer MEDICARE ==
[~2022-08-25] VITALS: Ht 162.6 cm; Wt 90.1 kg
[2022-08-25 20:53] LABS: HEMATOCRIT 39.4 % (36.0-47.0); HEMOGLOBIN 10.8 g/dl (12.0-15.5); MEAN CORPUSCULAR HEMOGLOBIN 31.1 pg (27.0-33.0); MEAN CORPUSCULAR HGB CONC 27.4 g/dl (32.0-36.5); MEAN CORPUSCULAR VOLUME 113.5 fl (80.0-96.0); PLATELET COUNT, AUTOMATED 249 10^3/uL (150-450); RED BLOOD COUNT 3.47 10^6/uL (4.00-5.40); WHITE BLOOD COUNT 17.8 10^3/uL (4.0-10.0)
[2022-08-25] MEDS ORDERED: NOREPINEPHRINE 4MG IN D5 250ML 4 MG in IV 1 EA IV STA ×2 (20:53)
[2022-08-25] MEDS ORDERED: NOREPINEPHRINE 4MG IN D5 250ML 4 MG in IV 1 EA IV SCH ×2 (21:00)
[2022-08-25 21:05] LABS: ABG BASE EXCESS -16.4 (-2.0-2.0); ABG HCO3 13.8 MEQ/L (22.0-26.0); ABG O2 SATURATION 97.7 % (95.0-99.0); ABG STANDARD HCO3 11.9 MEQ/L (22.0-26.0); ABG TOTAL CO2 15.3 MEQ/L (23.0-31.0)
[2022-08-25 21:06] LABS: ABG pH (ARTERIAL) 7.042 UNITS (7.350-7.450)
[2022-08-25 21:06] LABS: INR 1.04
[2022-08-25 21:07] LABS: PARTIAL THROMBOPLASTIN TIME 27.3 SECONDS (25.9-37.0)
[2022-08-25 21:07] LABS: ABG PARTIAL PRESSURE CO2 51.8 mmHg (35.0-45.0)
[2022-08-25 21:14] LABS: ATYPICAL LYMPH 2 % (0-5); LYMPHOCYTES 33 % (16-44); MONOCYTES 1 % (0-5); MYELOCYTES 1 % (0-0); NEUTROPHILS 62 % (28-66); PLATELET ESTIMATE NORMAL (NORMAL)
[2022-08-25 21:15] LABS: TEAR DROP CELLS 1+
[2022-08-25] MEDS ORDERED: NS 1,000 ML IV ONE ×2 (21:25→21:35)
[2022-08-25 21:27] LABS: CK-MB VALUE MASS 1.8 NG/ML (<3.6)
[2022-08-25 21:32] LABS: ACETONE/KETONE 1.36 MG/DL (<2.81); ALBUMIN 2.4 GM/DL (3.2-5.2); ALT/SGPT 128 U/L (12-78); AMYLASE 213 U/L (25-115); BILIRUBIN,DIRECT 0.3 MG/DL (0.0-0.2); BILIRUBIN,TOTAL 0.5 MG/DL (0.2-1.0); BLOOD UREA NITROGEN 63 MG/DL (7-18); CALCIUM LEVEL 9.1 MG/DL (8.8-10.2); CARBON DIOXIDE LEVEL 18 MEQ/L (21-32); CHLORIDE LEVEL 105 MEQ/L (98-107); CREATININE FOR GFR 2.49 MG/DL (0.55-1.30); ETHYL ALCOHOL (ETHANOL) < 0.003 % (0.000-0.010); GLUCOSE, FASTING 428 MG/DL (70-100); LIPASE 253 U/L (73-393); SODIUM LEVEL 142 MEQ/L (136-145); TOTAL PROTEIN 6.1 GM/DL (6.4-8.2)
[2022-08-25] MEDS ORDERED: SODIUM BICARBONATE 8.4% INJ 50 ML SYRINGE IV STA (21:34)
[2022-08-25] MEDS ORDERED: propofoL 1,000 MG in IV 1 EA IV STA (21:44)
[2022-08-25] MEDS ORDERED: PROPOFOL 1,000 MG/100 ML VIAL As Ordered ONE (21:46)
[2022-08-25 21:55] LABS: APPEARANCE, URINE MANUAL HAZY (CLEAR)
[2022-08-25] MEDS ORDERED: FUROSEMIDE 100MG/10ML VIAL (J1940) IV ONE (21:55)
[2022-08-25 21:56] LABS: COLOR, URINE MANUAL YELLOW (YELLOW); RSV AMPLIFICATION NEGATIVE (NEGATIVE); SPECIFIC GRAVITY,URINE MANUAL 1.015 (1.002-1.035)
[2022-08-25 21:57] LABS: BILIRUBIN, URINE MANUAL NEGATIVE (NEGATIVE); BLOOD URINE MANUAL POSITIVE (NEGATIVE); GLUCOSE, URINE (UA) MANUAL 2+(250 MG/DL) mg/dL (NEGATIVE); KETONE, URINE MANUAL NEGATIVE (NEGATIVE); LEUKOCYTE ESTERASE, URINE MAN TRACE (NEGATIVE); NITRITE, URINE MANUAL NEGATIVE (NEGATIVE); PROTEIN, URINE MANUAL 3+ mg/dL (NEGATIVE); UROBILINOGEN, URINE MANUAL NORMAL (NORMAL)
[2022-08-25 22:14] LABS: RBC, URINE 40-50 /hpf (0-3); SQUAMOUS EPITHELIAL CELL URINE MOD AMOUNT /hpf (SMALL AMT); TRANSITIONAL EPI CELLS, URINE SMALL AMOUNT /hpf
[2022-08-25 22:15] LABS: AMORPHOUS SEDIMENT, URINE SMALL AMOUNT (NEGATIVE); BACTERIA, URINE LARGE AMOUNT; HYALINE CAST, URINE NONE SEEN /lpf (0-1)
[2022-08-25 22:18] LABS: AMPHETAMINES LEVEL URINE NEGATIVE (NEGATIVE); BARBITURATES URINE NEGATIVE (NEGATIVE); BENZODIAZEPINES URINE NEGATIVE (NEGATIVE); CANNABINOIDS URINE NEGATIVE (NEGATIVE); COCAINE METABOLITE URINE NEGATIVE (NEGATIVE); METHADONE URINE NEGATIVE (NEGATIVE); OPIATES URINE NEGATIVE (NEGATIVE); PHENCYCLIDINE URINE NEGATIVE (NEGATIVE)
[2022-08-25 22:30] LABS: ABG BASE EXCESS -12.2 (-2.0-2.0); ABG HCO3 17.3 MEQ/L (22.0-26.0); ABG O2 SATURATION 94.7 % (95.0-99.0); ABG PARTIAL PRESSURE CO2 55.1 mmHg (35.0-45.0); ABG PARTIAL PRESSURE O2 98.3 mmHg (75.0-100.0); ABG STANDARD HCO3 14.9 MEQ/L (22.0-26.0)
[2022-08-25 22:31] LABS: ABG pH (ARTERIAL) 7.114 UNITS (7.350-7.450)
[2022-08-25] MEDS ORDERED: fentaNYL CITRATE/NaCl 1,000 MCG in IV 1 EA IV SCH (22:35)
[2022-08-25] MEDS ORDERED: LACRILUBE (AKWA TEARS) OPHTH OINT 3.5 GM OU PRN (22:35)
[2022-08-25] MEDS ORDERED: ACETAMINOPHEN 650 MG SUPP PR PRN (22:35)
[2022-08-25] MEDS ORDERED: FENTANYL DRIP LOCK BOX KEY 1 EACH XX PRN (22:35)
[2022-08-25] MEDS ORDERED: ACETAMINOPHEN 650 MG SUPP PR ONE (22:35)
[2022-08-25] MEDS ORDERED: HumuLIN R (REGULAR) INSULIN (NovoLIN R) **100U/ML** PER UNIT IV STA (22:44)
[2022-08-25] MEDS ORDERED: DEXTROSE 50% 50 ML SYRINGE IV PRN (22:45)
[2022-08-25] MEDS ORDERED: GLUCAGON INJ 1MG VIAL SC PRN (22:45)
[2022-08-25] MEDS ORDERED: GLUCOSE 4GM CHEW TABLET PO PRN (22:45)
[2022-08-25] MEDS ORDERED: LevoFLOXacin IV 750 MG in IV 1 EA IV ONE (23:00)
[2022-08-25 23:08] LABS: MAGNESIUM LEVEL 2.6 MG/DL (1.8-2.4); PHOSPHORUS LEVEL 7.9 MG/DL (2.5-4.9)
[2022-08-26] VITALS (95 sets, daily range): BP systolic 59–156; BP diastolic 28–80
[2022-08-26] MEDS ORDERED: ASPI-161 PO (00:47)
[2022-08-26] MEDS ORDERED: NOVOINJ SC (00:47)
[2022-08-26] MEDS ORDERED: ATOR80TA59 PO (00:47)
[2022-08-26] MEDS ORDERED: OMEP40CA5 PO (00:47)
[2022-08-26] MEDS ORDERED: SITA50TAB PO (00:47)
[2022-08-26] MEDS ORDERED: POTA-150 PO (00:47)
[2022-08-26] MEDS ORDERED: FURO40TA2 PO (00:47)
[2022-08-26] MEDS ORDERED: D 50CAP3 PO (00:47)
[2022-08-26] MEDS ORDERED: ALBU2.5V10 INH (00:47)
[2022-08-26] MEDS ORDERED: CVS0.52C PO (00:47)
[2022-08-26] MEDS ORDERED: ALBU8.5H INH (00:47)
[2022-08-26] MEDS ORDERED: PRED20TA PO (00:47)
[2022-08-26] MEDS ORDERED: LOSA25TA13 PO (00:47)
[2022-08-26] MEDS ORDERED: ALLO300T2 PO (00:47)
[2022-08-26] MEDS ORDERED: LORA-674 PO (00:47)
[2022-08-26] MEDS ORDERED: VITMTA PO (00:47)
[2022-08-26] MEDS: dexameTHASONE 4 MG/ML 1ML VIAL (J1100 PER 1MG) IV SCH ×2 (00:48→07:53)
[2022-08-26] MEDS ORDERED: HOME MED LIST COMPLETE! XX SCH (00:50)
[2022-08-26] MEDS ORDERED: PILL CUTTER 1 EACH XX PRN (01:15)
[2022-08-26] MEDS ORDERED: REMDESIVIR 200 MG in NS 250 ML IV ONE (02:30)
[2022-08-26] MEDS: INSULIN LISPRO (NovoLOG) PER UNIT SC SCH ×2 (03:24→06:34)
[2022-08-26] MEDS: NOREPINEPHRINE 4MG IN D5 250ML 4 MG in IV 1 EA IV SCH ×8 (03:30→19:35)
[2022-08-26] MEDS: fentaNYL CITRATE/NaCl 1,000 MCG in IV 1 EA IV SCH (03:35)
[2022-08-26] MEDS ORDERED: HEPARIN SOD (PORCINE) 5000UNITS/ML 1ML VIAL/SYRINGE IV ONE ×2 (03:40→04:25)
[2022-08-26] MEDS ORDERED: HEPARIN SOD (PORCINE) 5000UNITS/ML 1ML VIAL/SYRINGE IV PRN (03:40)
[2022-08-26] MEDS ORDERED: HEPARIN DRIP 25,000 UNITS in IV 1 EA IV SCH (03:40)
[2022-08-26] MEDS ORDERED: SODIUM CHLORIDE 0.9% INJ 10 ML SYR IV ONE (04:30)
[2022-08-26] MEDS: propofoL 1,000 MG in IV 1 EA IV SCH ×3 (04:42→17:37)
[2022-08-26] MEDS ORDERED: EPINEPHrine 1MG/10ML SYRINGE 1.5IN ONE (06:03)
[2022-08-26 06:15] LABS: ABG BASE EXCESS -3.1 (-2.0-2.0); ABG HCO3 22.2 MEQ/L (22.0-26.0); ABG O2 SATURATION 98.9 % (95.0-99.0); ABG PARTIAL PRESSURE CO2 40.7 mmHg (35.0-45.0); ABG PARTIAL PRESSURE O2 145.4 mmHg (75.0-100.0); ABG STANDARD HCO3 21.9 MEQ/L (22.0-26.0); ABG TOTAL CO2 23.5 MEQ/L (23.0-31.0); ABG pH (ARTERIAL) 7.355 UNITS (7.350-7.450); HEMATOCRIT 37.3 % (36.0-47.0); HEMOGLOBIN 11.1 g/dl (12.0-15.5); MEAN CORPUSCULAR HEMOGLOBIN 31.3 pg (27.0-33.0); MEAN CORPUSCULAR HGB CONC 29.8 g/dl (32.0-36.5); MEAN CORPUSCULAR VOLUME 105.1 fl (80.0-96.0); PLATELET COUNT, AUTOMATED 191 10^3/uL (150-450); RED BLOOD COUNT 3.55 10^6/uL (4.00-5.40)
[2022-08-26 06:18] LABS: WHITE BLOOD COUNT 31.9 10^3/uL (4.0-10.0)
[2022-08-26 06:33] LABS: INR 1.34
[2022-08-26 06:55] LABS: ALBUMIN 2.2 GM/DL (3.2-5.2); BILIRUBIN,TOTAL 0.5 MG/DL (0.2-1.0); CALCIUM LEVEL 7.9 MG/DL (8.8-10.2); CREATININE FOR GFR 2.37 MG/DL (0.55-1.30); GLOMERULAR FILTRATION RATE 21.1 (>39); MAGNESIUM LEVEL 1.9 MG/DL (1.8-2.4); POTASSIUM SERUM 3.7 MEQ/L (3.5-5.1); TOTAL PROTEIN 5.8 GM/DL (6.4-8.2)
[2022-08-26 07:32] LABS: PARTIAL THROMBOPLASTIN TIME 195.3 SECONDS (25.9-37.0)
[2022-08-26] MEDS: LACRILUBE (AKWA TEARS) OPHTH OINT 3.5 GM OU SCH ×3 (07:52→20:31)
[2022-08-26] MEDS: PANTOPRAZOLE 40MG VIAL IV SCH (07:53)
[2022-08-26] MEDS: CHLORHEXIDINE GLUCONATE 0.12 % 15ML UDC (PERIDEX ORAL RINSE) MT SCH ×2 (07:53→20:30)
[2022-08-26] MEDS ORDERED: BARICITINIB 2MG TABLET (OLUMIANT) FOR EUA PO SCH (09:00)
[2022-08-26] MEDS ORDERED: HEPARIN SOD (PORCINE) 5000UNITS/ML 1ML VIAL/SYRINGE SC SCH (09:00)
[2022-08-26] MEDS: NYSTATIN 100,000 UNITS/GM TOPICAL PWD 15 GM TOP SCH ×2 (09:43→20:31)
[2022-08-26] MEDS: NS 1,000 ML IV SCH ×2 (09:43→22:10)
[2022-08-26] MEDS: INSULIN REGULAR IN 0.9 % NACL 100 UNIT in IV 1 EA IV SCH ×4 (09:46→21:31)
[2022-08-26] MEDS ORDERED: AZITHROMYCIN INJ 500 MG, VIAL MATE ADAPTER 1 EACH in NS 250 ML IV SCH (09:55)
[2022-08-26 10:22] LABS: VENOUS BASE EXCESS -5.6 (-2.0-2.0); VENOUS HCO3 21.8 MEQ/L (23.0-27.0); VENOUS O2 SATURATION 90.4 % (60.0-80.0); VENOUS PARTIAL PRESSURE CO2 50.9 mmHg (38.0-50.0); VENOUS PARTIAL PRESSURE O2 68.5 mmHg (30.0-50.0); VENOUS PH 7.249 UNITS (7.330-7.430); VENOUS STANDARD HCO3 19.7 MEQ/L; VENOUS TOTAL CO2 23.3 MEQ/L (24.0-28.0)
[2022-08-26 10:28] LABS: HEMATOCRIT 35.7 % (36.0-47.0); HEMOGLOBIN 10.7 g/dl (12.0-15.5); MEAN CORPUSCULAR HEMOGLOBIN 31.7 pg (27.0-33.0); MEAN CORPUSCULAR VOLUME 105.6 fl (80.0-96.0); PLATELET COUNT, AUTOMATED 182 10^3/uL (150-450); RED BLOOD COUNT 3.38 10^6/uL (4.00-5.40)
[2022-08-26 10:34] LABS: WHITE BLOOD COUNT 30.3 10^3/uL (4.0-10.0)
[2022-08-26 11:40] LABS: BILIRUBIN,TOTAL 0.5 MG/DL (0.2-1.0); CALCIUM LEVEL 7.6 MG/DL (8.8-10.2); CREATININE FOR GFR 2.71 MG/DL (0.55-1.30); GLOMERULAR FILTRATION RATE 18.1 (>39); MAGNESIUM LEVEL 2.4 MG/DL (1.8-2.4); PHOSPHORUS LEVEL 5.8 MG/DL (2.5-4.9); POTASSIUM SERUM 3.9 MEQ/L (3.5-5.1); TOTAL PROTEIN 5.5 GM/DL (6.4-8.2)
[2022-08-26] MEDS: ASPIRIN 81 MG CHEW TABLET PO SCH (11:56)
[2022-08-26] MEDS: INSULIN IV RATE CHANGE DOCUMENTATION ML/HR XX SCH ×3 (12:15→15:50)
[2022-08-26] MEDS: IPRATROPIUM 0.5MG/ALBUTEROL 2.5MG INH SOL UD 3ML (DUONEB) NEB SCH (12:46)
[2022-08-26] MEDS: AZTREONAM 1 GM in D5W MINI-BAG PLUS 50 ML IV SCH ×2 (13:19→19:35)
[2022-08-26 14:12] LABS: VENOUS BASE EXCESS -3.8 (-2.0-2.0); VENOUS HCO3 22.7 MEQ/L (23.0-27.0); VENOUS O2 SATURATION 81.9 % (60.0-80.0); VENOUS PARTIAL PRESSURE CO2 47.7 mmHg (38.0-50.0); VENOUS PH 7.296 UNITS (7.330-7.430); VENOUS TOTAL CO2 24.2 MEQ/L (24.0-28.0)
[2022-08-26] MEDS: DOXYCYCLINE HYCLATE 100 MG in D5W MINI-BAG PLUS 100 ML IV SCH (14:12)
[2022-08-26 14:16] LABS: HEMATOCRIT 33.3 % (36.0-47.0); HEMOGLOBIN 10.1 g/dl (12.0-15.5); MEAN CORPUSCULAR HEMOGLOBIN 31.8 pg (27.0-33.0); MEAN CORPUSCULAR HGB CONC 30.3 g/dl (32.0-36.5); MEAN CORPUSCULAR VOLUME 104.7 fl (80.0-96.0); PLATELET COUNT, AUTOMATED 168 10^3/uL (150-450); RED BLOOD COUNT 3.18 10^6/uL (4.00-5.40); WHITE BLOOD COUNT 29.8 10^3/uL (4.0-10.0)
[2022-08-26 14:54] LABS: ALBUMIN 1.8 GM/DL (3.2-5.2); BILIRUBIN,TOTAL 0.4 MG/DL (0.2-1.0); CALCIUM LEVEL 7.4 MG/DL (8.8-10.2); CREATININE FOR GFR 2.7 MG/DL (0.55-1.30); GLOMERULAR FILTRATION RATE 18.2 (>39); MAGNESIUM LEVEL 1.9 MG/DL (1.8-2.4); PHOSPHORUS LEVEL 4.8 MG/DL (2.5-4.9); POTASSIUM SERUM 3.9 MEQ/L (3.5-5.1); TOTAL PROTEIN 5.4 GM/DL (6.4-8.2)
[2022-08-26 16:08] LABS: INR 1.42; PROTHROMBIN TIME 17.8 SECONDS (12.7-14.5)
[2022-08-26 16:20] LABS: ABG BASE EXCESS -1.9 (-2.0-2.0); ABG HCO3 22.3 MEQ/L (22.0-26.0); ABG O2 SATURATION 97.2 % (95.0-99.0); ABG PARTIAL PRESSURE CO2 36.1 mmHg (35.0-45.0); ABG PARTIAL PRESSURE O2 96.5 mmHg (75.0-100.0); ABG STANDARD HCO3 22.9 MEQ/L (22.0-26.0); ABG TOTAL CO2 23.4 MEQ/L (23.0-31.0); ABG pH (ARTERIAL) 7.409 UNITS (7.350-7.450)
[2022-08-26 17:15] LABS: PARTIAL THROMBOPLASTIN TIME 174.3 SECONDS (25.9-37.0)
[2022-08-26 17:53] LABS: VENOUS BASE EXCESS -2.2 (-2.0-2.0); VENOUS HCO3 23.7 MEQ/L (23.0-27.0); VENOUS O2 SATURATION 84.6 % (60.0-80.0); VENOUS PARTIAL PRESSURE CO2 45.3 mmHg (38.0-50.0); VENOUS PARTIAL PRESSURE O2 53.4 mmHg (30.0-50.0); VENOUS PH 7.336 UNITS (7.330-7.430); VENOUS STANDARD HCO3 22.4 MEQ/L; VENOUS TOTAL CO2 25.1 MEQ/L (24.0-28.0)
[2022-08-26 18:00] LABS: HEMATOCRIT 33.7 % (36.0-47.0); HEMOGLOBIN 10.1 g/dl (12.0-15.5); MEAN CORPUSCULAR VOLUME 103.4 fl (80.0-96.0); PLATELET COUNT, AUTOMATED 173 10^3/uL (150-450); RED BLOOD COUNT 3.26 10^6/uL (4.00-5.40); WHITE BLOOD COUNT 28.9 10^3/uL (4.0-10.0)
[2022-08-26 19:23] LABS: ALBUMIN 1.9 GM/DL (3.2-5.2); BILIRUBIN,TOTAL 0.4 MG/DL (0.2-1.0); CALCIUM LEVEL 7.3 MG/DL (8.8-10.2); CREATININE FOR GFR 2.59 MG/DL (0.55-1.30); GLOMERULAR FILTRATION RATE 19.1 (>39); MAGNESIUM LEVEL 1.7 MG/DL (1.8-2.4); PHOSPHORUS LEVEL 4.2 MG/DL (2.5-4.9); POTASSIUM SERUM 3.6 MEQ/L (3.5-5.1); TOTAL PROTEIN 5.5 GM/DL (6.4-8.2)
[2022-08-26 22:11] LABS: VENOUS BASE EXCESS -1.5 (-2.0-2.0); VENOUS HCO3 23.8 MEQ/L (23.0-27.0); VENOUS O2 SATURATION 87.9 % (60.0-80.0); VENOUS PARTIAL PRESSURE CO2 42.3 mmHg (38.0-50.0); VENOUS PARTIAL PRESSURE O2 58.1 mmHg (30.0-50.0); VENOUS PH 7.368 UNITS (7.330-7.430); VENOUS STANDARD HCO3 23.1 MEQ/L; VENOUS TOTAL CO2 25.1 MEQ/L (24.0-28.0)
[2022-08-26 22:17] LABS: HEMATOCRIT 31.6 % (36.0-47.0); HEMOGLOBIN 9.8 g/dl (12.0-15.5); MEAN CORPUSCULAR HEMOGLOBIN 31.4 pg (27.0-33.0); MEAN CORPUSCULAR VOLUME 101.3 fl (80.0-96.0); PLATELET COUNT, AUTOMATED 164 10^3/uL (150-450); RED BLOOD COUNT 3.12 10^6/uL (4.00-5.40); WHITE BLOOD COUNT 27.7 10^3/uL (4.0-10.0)
[2022-08-26 23:22] LABS: ALBUMIN 1.8 GM/DL (3.2-5.2); BILIRUBIN,TOTAL 0.3 MG/DL (0.2-1.0); CALCIUM LEVEL 7.1 MG/DL (8.8-10.2); CREATININE FOR GFR 2.58 MG/DL (0.55-1.30); GLOMERULAR FILTRATION RATE 19.2 (>39); MAGNESIUM LEVEL 1.6 MG/DL (1.8-2.4); POTASSIUM SERUM 3.6 MEQ/L (3.5-5.1); TOTAL PROTEIN 5.3 GM/DL (6.4-8.2)
[2022-08-27] VITALS (57 sets, daily range): BP systolic 76–179; BP diastolic 46–79
[2022-08-27] MEDS: IPRATROPIUM 0.5MG/ALBUTEROL 2.5MG INH SOL UD 3ML (DUONEB) NEB SCH ×3 (00:25→08:40)
[2022-08-27 01:58] LABS: HEMATOCRIT 29.1 % (36.0-47.0); HEMOGLOBIN 9.1 g/dl (12.0-15.5); MEAN CORPUSCULAR HEMOGLOBIN 31.6 pg (27.0-33.0); MEAN CORPUSCULAR HGB CONC 31.3 g/dl (32.0-36.5); PLATELET COUNT, AUTOMATED 132 10^3/uL (150-450); RED BLOOD COUNT 2.88 10^6/uL (4.00-5.40); WHITE BLOOD COUNT 26.2 10^3/uL (4.0-10.0)
[2022-08-27] MEDS ORDERED: DIGOXIN INJ 0.5 MG/2 ML AMP (J1160) IV ONE ×3 (02:00→09:00)
[2022-08-27] MEDS: DOXYCYCLINE HYCLATE 100 MG in D5W MINI-BAG PLUS 100 ML IV SCH (02:12)
[2022-08-27 02:27] LABS: ALBUMIN 1.7 GM/DL (3.2-5.2); BILIRUBIN,TOTAL 0.4 MG/DL (0.2-1.0); CALCIUM LEVEL 6.9 MG/DL (8.8-10.2); CREATININE FOR GFR 2.63 MG/DL (0.55-1.30); GLOMERULAR FILTRATION RATE 18.8 (>39); MAGNESIUM LEVEL 1.6 MG/DL (1.8-2.4); PHOSPHORUS LEVEL 4.2 MG/DL (2.5-4.9); POTASSIUM SERUM 4.2 MEQ/L (3.5-5.1); TOTAL PROTEIN 5.1 GM/DL (6.4-8.2)
[2022-08-27] MEDS: AZTREONAM 1 GM in D5W MINI-BAG PLUS 50 ML IV SCH (03:00)
[2022-08-27] MEDS: propofoL 1,000 MG in IV 1 EA IV SCH (03:00)
[2022-08-27] MEDS: NOREPINEPHRINE 4MG IN D5 250ML 4 MG in IV 1 EA IV SCH ×4 (03:12→10:19)
[2022-08-27] MEDS: fentaNYL CITRATE/NaCl 1,000 MCG in IV 1 EA IV SCH (05:59)
[2022-08-27 06:07] LABS: HEMATOCRIT 29.6 % (36.0-47.0); HEMOGLOBIN 9.3 g/dl (12.0-15.5); MEAN CORPUSCULAR HGB CONC 31.4 g/dl (32.0-36.5); MEAN CORPUSCULAR VOLUME 101.7 fl (80.0-96.0); PLATELET COUNT, AUTOMATED 147 10^3/uL (150-450); RED BLOOD COUNT 2.91 10^6/uL (4.00-5.40); WHITE BLOOD COUNT 27.6 10^3/uL (4.0-10.0)
[2022-08-27 06:29] LABS: ABG BASE EXCESS -2.3 (-2.0-2.0); ABG HCO3 22.2 MEQ/L (22.0-26.0); ABG O2 SATURATION 98.1 % (95.0-99.0); ABG PARTIAL PRESSURE CO2 37.1 mmHg (35.0-45.0); ABG PARTIAL PRESSURE O2 112.9 mmHg (75.0-100.0); ABG STANDARD HCO3 22.5 MEQ/L (22.0-26.0); ABG TOTAL CO2 23.3 MEQ/L (23.0-31.0); ABG pH (ARTERIAL) 7.395 UNITS (7.350-7.450)
[2022-08-27 06:49] LABS: ALBUMIN 1.7 GM/DL (3.2-5.2); BILIRUBIN,DIRECT 0.1 MG/DL (0.0-0.2); BILIRUBIN,TOTAL 0.3 MG/DL (0.2-1.0); CALCIUM LEVEL 6.9 MG/DL (8.8-10.2); CREATININE FOR GFR 2.71 MG/DL (0.55-1.30); GLOMERULAR FILTRATION RATE 18.1 (>39); MAGNESIUM LEVEL 1.5 MG/DL (1.8-2.4); PHOSPHORUS LEVEL 4.4 MG/DL (2.5-4.9); TOTAL PROTEIN 5.2 GM/DL (6.4-8.2)
[2022-08-27] MEDS: PANTOPRAZOLE 40MG VIAL IV SCH (08:04)
[2022-08-27] MEDS: CHLORHEXIDINE GLUCONATE 0.12 % 15ML UDC (PERIDEX ORAL RINSE) MT SCH (08:04)
[2022-08-27] MEDS: NYSTATIN 100,000 UNITS/GM TOPICAL PWD 15 GM TOP SCH (08:05)
[2022-08-27] MEDS: dexameTHASONE 4 MG/ML 1ML VIAL (J1100 PER 1MG) IV SCH (08:05)
[2022-08-27] MEDS: LACRILUBE (AKWA TEARS) OPHTH OINT 3.5 GM OU SCH (08:06)
[2022-08-27] MEDS: ASPIRIN 81 MG CHEW TABLET PO SCH (08:13)
[2022-08-27] MEDS ORDERED: MIDAZOLAM INJ 2MG/2ML VIAL (J2250 PER 1MG) IV PRN (08:55)
[2022-08-27] MEDS ORDERED: AMIODARONE HCL 150 MG in IV 1 EA IV ONE (09:00)
[2022-08-27] MEDS ORDERED: BARICITINIB 2MG TABLET (OLUMIANT) FOR EUA PO SCH (09:00)
[2022-08-27] MEDS ORDERED: HYDROCORTISONE 100 MG/2 ML VIAL (J1720 PER 1) IV SCH ×2 (09:00→11:00)
[2022-08-27] MEDS ORDERED: AMIODARONE HCL 360 MG in IV 1 EA IV SCH ×2 (09:10→15:10)
[2022-08-27] MEDS ORDERED: PILL CUTTER 1 EACH XX PRN (09:15)
[2022-08-27] MEDS ORDERED: MAG SULF 1GM/100ML (MAG RUN) 1 GM in IV 1 EA IV ONE (09:15)
[2022-08-27] MEDS ORDERED: REMDESIVIR 100 MG in NS 250 ML IV SCH ×2 (09:55→11:00)
[2022-08-27] MEDS ORDERED: MEROPENEM INJ 1 GM in IV 1 EA IV SCH (10:00)
[2022-08-27] MEDS ORDERED: SODIUM CHLORIDE 0.9% INJ 10 ML SYR IV SCH ×2 (10:55→11:00)
[2022-08-27] MEDS: INSULIN IV RATE CHANGE DOCUMENTATION ML/HR XX SCH (12:13)
[2022-08-27] MEDS ORDERED: MORPHINE 2 MG/ML 1ML VIAL IV PRN (15:00)
[2022-08-27] MEDS ORDERED: SCOPOLAMINE 1MG TRANSDERMAL PATCH TOP PRN (15:00)
[2022-08-27] MEDS ORDERED: LORazepam 1 MG TAB PO PRN (15:00)
[2022-08-28 13:08] LABS: BODY FLUID CULTURE Not indicated. (.); LEGIONELLA ANTIGEN URINE Negative (Negative); ORGANISM ID Not indicated. (.); SPECIMEN SOURCE Urine (.); URINE STREP PNEUMONIAE ANTIGEN Negative (Negative)
== END 2022-08-27 15:18 | disposition expired ==
LOC: EDBD 20:29 → M ED 20:29 → M ED INP 22:32 → M ICU 08-26 01:08
PROVIDERS: ADMIT Internal Medicine; ATTEND Internal Medicine
PROC: 5A1945Z Respiratory Ventilation, 24-96 Consecutive Hours (ICD-10-PCS; 2022-08-25)
PROC: 3E0333Z Introduction of Anti-inflammatory into Peripheral Vein, Percutaneous Approach (ICD-10-PCS; principal; 2022-08-26)
PROC: XW033E5 Introduction of Remdesivir Anti-infective into Peripheral Vein, Percutaneous Approach, New Technology Group 5 (ICD-10-PCS; 2022-08-26)
PROC: B246ZZZ Ultrasonography of Right and Left Heart (ICD-10-PCS; 2022-08-26)
PROC: 02HV33Z Insertion of Infusion Device into Superior Vena Cava, Percutaneous Approach (ICD-10-PCS; 2022-08-26)
DX: I46.9 Cardiac arrest, cause unspecified (principal); I21.4 Non-ST elevation (NSTEMI) myocardial infarction; U07.1 COVID-19; J12.82 Pneumonia due to coronavirus disease 2019; A41.9 Sepsis, unspecified organism; K72.00 Acute and subacute hepatic failure without coma; R65.21 Severe sepsis with septic shock; J80 Acute respiratory distress syndrome; N18.4 Chronic kidney disease, stage 4 (severe); N17.9 Acute kidney failure, unspecified; E87.2 Acidosis; J44.0 Chronic obstructive pulmonary disease with (acute) lower respiratory infection; G93.40 Encephalopathy, unspecified; G93.1 Anoxic brain damage, not elsewhere classified; M96.89 Other intraoperative and postprocedural complications and disorders of the musculoskeletal system; Y84.8 Other medical procedures as the cause of abnormal reaction of the patient, or of later complication, without mention of misadventure at the time of the procedure; Z66 Do not resuscitate; M10.9 Gout, unspecified; I12.9 Hypertensive chronic kidney disease with stage 1 through stage 4 chronic kidney disease, or unspecified chronic kidney disease; Z90.49 Acquired absence of other specified parts of digestive tract; Z90.79 Acquired absence of other genital organ(s); Z79.82 Long term (current) use of aspirin; Z79.4 Long term (current) use of insulin; Z79.52 Long term (current) use of systemic steroids; Z79.899 Other long term (current) drug therapy; Z88.0 Allergy status to penicillin; Z88.1 Allergy status to other antibiotic agents; Z88.8 Allergy status to other drugs, medicaments and biological substances; E11.65 Type 2 diabetes mellitus with hyperglycemia; E78.5 Hyperlipidemia, unspecified; G47.33 Obstructive sleep apnea (adult) (pediatric); R00.0 Tachycardia, unspecified; E11.22 Type 2 diabetes mellitus with diabetic chronic kidney disease